=== PATIENT | female | born 1945 | race Caucasian/White ===

== ENCOUNTER 2020-07-12 05:39 | Day surgery (SDC) | payer OTHER ==
[2020-07-10 12:17] LABS: COVID AG,FIA SOURCE NASOPHARYNGEAL
[~2020-07-12] VITALS: Ht 147.3 cm; Wt 59.1 kg
[~2020-07-12 05:39] MED LIST: 0.9% SODIUM CHLORIDE 10 ML SYRINGE IVP PRN; KETOROLAC TROMETHAMINE 0.5% 5 ML OPHTHALMIC SOLUTION ONE; MOXIFLOXACIN HCL 0.5% 3 ML OPHTHALMIC SOLUTION ONE; PHENYLEPHRINE HCL 2.5% 2 ML OPHTHALMIC SOLUTION ONE; TROPICAMIDE 1% 2 ML OPHTHALMIC SOLUTION ONE
[2020-07-12] MEDS ORDERED: EPINEPHrine 1:1,000 [1 MG/ML] AMP ET ONE (05:40)
[2020-07-12] MEDS ORDERED: LIDOCAINE/PF 1% 2 ML VIAL CAUDAL ONE (05:40)
[2020-07-12] MEDS ORDERED: BALANCED SALT 15 ML OPHTHALMIC IRRIG.SOLN IO ONE (05:40)
[2020-07-12] MEDS ORDERED: TETRACAINE HCL/PF 0.5% 4 ML OPHTHALMIC SOLUTION OD ONE (05:40)
[2020-07-12] MEDS ORDERED: POVIDONE-IODINE 10% 15 ML SOLUTION UD TP ONE (05:40)
[2020-07-12] MEDS ORDERED: CHONDR SULF A SOD/HYALURONATE 1.05 ML KIT IO ONE (05:40)
[2020-07-12] MEDS: MOXIFLOXACIN HCL 0.5% 3 ML OPHTHALMIC SOLUTION OD SCH ×3 (06:03→06:16)
[2020-07-12] MEDS: PHENYLEPHRINE HCL 2.5% 2 ML OPHTHALMIC SOLUTION OD SCH ×3 (06:03→06:16)
[2020-07-12] MEDS: TROPICAMIDE 1% 2 ML OPHTHALMIC SOLUTION OD SCH ×3 (06:03→06:15)
[2020-07-12] MEDS: KETOROLAC TROMETHAMINE 0.5% 5 ML OPHTHALMIC SOLUTION OD SCH ×3 (06:03→06:16)
[2020-07-12 06:34] LABS: GLUCOMETER DEV NAME(LOC) SDS.; GLUCOSE,POINT OF CARE 167 MG/DL (70-110)
[2020-07-12] MEDS ORDERED: METF-960 PO (06:42)
[2020-07-12] MEDS ORDERED: ATOR40TA28 PO (06:42)
[2020-07-12] MEDS ORDERED: ASPI-1450 PO (06:42)
[2020-07-12] MEDS ORDERED: LOSA50TA37 PO (06:42)
[2020-07-12] MEDS ORDERED: FentaNYL CITRATE PF 100 MCG/2 ML VIAL IVP ONE (12:00)
[2020-07-12] MEDS ORDERED: MIDAZOLAM HCL 2 MG/2 ML VIAL IVP ONE (12:00)
== END 2020-07-12 09:12 | disposition home or self-care (01) ==
LOC: SURGERY 05:39
PROVIDERS: ATTEND Ophthalmology
DX: E11.36 Type 2 diabetes mellitus with diabetic cataract (principal); H40.1131 Primary open-angle glaucoma, bilateral, mild stage; E11.39 Type 2 diabetes mellitus with other diabetic ophthalmic complication; H25.11 Age-related nuclear cataract, right eye; I10 Essential (primary) hypertension; I25.10 Atherosclerotic heart disease of native coronary artery without angina pectoris; Z79.899 Other long term (current) drug therapy; Z79.82 Long term (current) use of aspirin
CPT/HCPCS: 66984; 82962; 87426; 93005 ×2; A9575; C9803; J0171; J2250; J3010; J3490; V2632

== ENCOUNTER 2020-08-09 06:11 | Day surgery (SDC) | payer OTHER ==
[2020-08-07 11:46] LABS: COVID AG,FIA SOURCE NASOPHARYNGEAL
[~2020-08-09] VITALS: Ht 144.8 cm; Wt 57.3 kg
[~2020-08-09 06:11] MED LIST changes: -0.9% SODIUM CHLORIDE 10 ML SYRINGE IVP PRN; +ASPI-1450 PO; +ATOR40TA28 PO; +LOSA50TA37 PO; +METF-960 PO; +RINGERS SOLUTION,LACTATED 500 ML IV ONE
[2020-08-09] MEDS ORDERED: BALANCED SALT 15 ML OPHTHALMIC IRRIG.SOLN OD ONE (06:12)
[2020-08-09] MEDS ORDERED: CHONDR SULF A SOD/HYALURONATE 1.05 ML KIT IO ONE (06:12)
[2020-08-09] MEDS ORDERED: TETRACAINE HCL/PF 0.5% 4 ML OPHTHALMIC SOLUTION OD ONE (06:12)
[2020-08-09] MEDS ORDERED: LIDOCAINE/PF 1% 2 ML VIAL IM ONE (06:12)
[2020-08-09] MEDS ORDERED: POVIDONE-IODINE 10% 15 ML SOLUTION UD TP ONE (06:12)
[2020-08-09] MEDS ORDERED: EPINEPHrine 1:1,000 [1 MG/ML] AMP IM ONE (06:12)
[2020-08-09] MEDS: TROPICAMIDE 1% 2 ML OPHTHALMIC SOLUTION OS SCH ×3 (06:56→07:11)
[2020-08-09] MEDS: KETOROLAC TROMETHAMINE 0.5% 5 ML OPHTHALMIC SOLUTION OS SCH ×3 (06:57→07:10)
[2020-08-09] MEDS: PHENYLEPHRINE HCL 2.5% 2 ML OPHTHALMIC SOLUTION OS SCH ×3 (06:57→07:11)
[2020-08-09] MEDS: MOXIFLOXACIN HCL 0.5% 3 ML OPHTHALMIC SOLUTION OS SCH ×3 (06:57→07:11)
[2020-08-09] MEDS ORDERED: RINGERS SOLUTION,LACTATED 500 ML IV ONE (07:00)
[2020-08-09 07:02] LABS: GLUCOMETER DEV NAME(LOC) SDS.; GLUCOSE,POINT OF CARE 127 MG/DL (70-110)
[2020-08-09] MEDS ORDERED: FentaNYL CITRATE PF 100 MCG/2 ML VIAL IVP ONE (12:00)
[2020-08-09] MEDS ORDERED: MIDAZOLAM HCL 2 MG/2 ML VIAL IVP ONE (12:00)
== END 2020-08-09 08:45 | disposition home or self-care (01) ==
LOC: SURGERY 06:11
PROVIDERS: ATTEND Ophthalmology
DX: E11.36 Type 2 diabetes mellitus with diabetic cataract (principal); H25.12 Age-related nuclear cataract, left eye; E78.00 Pure hypercholesterolemia, unspecified; H40.1122 Primary open-angle glaucoma, left eye, moderate stage; I10 Essential (primary) hypertension; M19.90 Unspecified osteoarthritis, unspecified site; E78.5 Hyperlipidemia, unspecified; E11.39 Type 2 diabetes mellitus with other diabetic ophthalmic complication; Z79.82 Long term (current) use of aspirin; Z79.899 Other long term (current) drug therapy; Z98.890 Other specified postprocedural states
CPT/HCPCS: 66984; 66174; 82962; 87426; 93005; A9575; C9803; J0171; J2250; J3010; J3490; J7120; V2632